=== PATIENT | male | born 1975 | race Caucasian/White ===

== ENCOUNTER 2023-08-15 17:00 | Outpatient (CLI) | payer BC | END 2023-08-15 17:01 | disposition home or self-care (01) | LOC: SLEEPLAB 17:00 | PROVIDERS: ATTEND Family Medicine | DX: G47.33 Obstructive sleep apnea (adult) (pediatric) (principal); E66.9 Obesity, unspecified; R53.83 Other fatigue; Z68.38 Body mass index [BMI] 38.0-38.9, adult | CPT/HCPCS: 95800 ==

== ENCOUNTER 2023-09-11 17:00 | Outpatient (CLI) | payer BC | END 2023-09-11 17:01 | disposition home or self-care (01) | LOC: SLEEPLAB 17:00 | PROVIDERS: ATTEND Family Medicine | DX: G47.33 Obstructive sleep apnea (adult) (pediatric) (principal); R53.83 Other fatigue; E66.9 Obesity, unspecified; R06.83 Snoring; G47.10 Hypersomnia, unspecified; Z68.38 Body mass index [BMI] 38.0-38.9, adult | CPT/HCPCS: 95811 ==